=== PATIENT | female | born 1955 | race Caucasian/White ===

== ENCOUNTER 2021-05-28 05:19 | Day surgery (SDC) | payer OTHER, MEDICAID ==
[~2021-05-28] VITALS: Ht 154.9 cm; Wt 57.7 kg
[2021-05-28] MEDS ORDERED: TETRACAINE HCL/PF 0.5% 4 ML OPHTHALMIC SOLUTION OD ONE (05:20)
[2021-05-28] MEDS ORDERED: LIDOCAINE/PF 1% 2 ML VIAL CAUDAL ONE (05:20)
[2021-05-28] MEDS ORDERED: NEOMYCIN/POLYMYXIN B/DEXAMETH 3.5 GM OPHTHALMIC OINTMENT OD ONE (05:20)
[2021-05-28] MEDS ORDERED: DEXAMETHASONE SOD PHOS 4 MG/ML 5 ML VIAL IVP ONE (05:20)
[2021-05-28] MEDS ORDERED: POVIDONE-IODINE 10% 15 ML SOLUTION UD TP ONE (05:20)
[2021-05-28] MEDS ORDERED: HYALURONATE SOD 8.5MG/0.85ML 10 MG/ML SYRINGE IO ONE (05:20)
[2021-05-28] MEDS ORDERED: HYALURONIDASE, HUMAN RECOMB. 150 UNITS/ML ID ONE (05:20)
[2021-05-28] MEDS ORDERED: BUPIVACAINE HCL/PF 0.75% 10 ML VIAL CAUDAL ONE (05:20)
[2021-05-28] MEDS ORDERED: RINGERS SOLUTION,LACTATED 500 ML IV ONE ×2 (05:45→05:58)
[2021-05-28 05:54] LABS: COVID AG,FIA SOURCE NASAL SWAB
[2021-05-28] MEDS ORDERED: MOXIFLOXACIN HCL 0.5% 3 ML OPHTHALMIC SOLUTION ONE (05:58)
[2021-05-28] MEDS ORDERED: PHENYLEPHRINE HCL 2.5% 2 ML OPHTHALMIC SOLUTION ONE (05:58)
[2021-05-28] MEDS ORDERED: DEXAMETHASONE 0.1% 5 ML OPHTHALMIC SOLUTION OS ONE (06:00)
[2021-05-28] MEDS: PHENYLEPHRINE HCL 2.5% 2 ML OPHTHALMIC SOLUTION OS SCH ×3 (06:05→06:15)
[2021-05-28] MEDS: MOXIFLOXACIN HCL 0.5% 3 ML OPHTHALMIC SOLUTION OS SCH ×3 (06:06→06:15)
[2021-05-28] MEDS ORDERED: LIDOCAINE/PF 1% 2 ML VIAL ONE ×3 (06:06→06:14)
[2021-05-28] MEDS ORDERED: BUPIVACAINE HCL/DEX-WATER/PF 0.75% 2 ML AMP ITH ONE (06:08)
[2021-05-28] MEDS ORDERED: NEOMYCIN/POLYMYXIN B/DEXAMETH 3.5 GM OPHTHALMIC OINTMENT ONE (06:08)
[2021-05-28] MEDS ORDERED: HYALURONIDASE, HUMAN RECOMB. 150 UNITS/ML ONE (06:09)
[2021-05-28] MEDS ORDERED: TETRACAINE HCL/PF 0.5% 4 ML OPHTHALMIC SOLUTION ONE (06:11)
[2021-05-28] MEDS ORDERED: BUPIVACAINE HCL/PF 0.75% 10 ML VIAL ONE (06:15)
[2021-05-28] MEDS ORDERED: SODIUM CHLORIDE 0.9% 10 ML ONE (06:15)
[2021-05-28] MEDS ORDERED: POVIDONE-IODINE 10% 15 ML SOLUTION UD ONE (06:16)
[2021-05-28 06:46] LABS: GLUCOMETER DEV NAME(LOC) SDS.; GLUCOSE,POINT OF CARE 114 MG/DL (70-110)
[2021-05-28] MEDS ORDERED: PROPOFOL 1% 20 ML VIAL IVP ONE (12:00)
[2021-05-28] MEDS ORDERED: DiphenhydrAMINE HCL 50 MG/ML VIAL IVP ONE (12:00)
[2021-05-28] MEDS ORDERED: LIDOCAINE/PF 2% 5 ML SYRINGE IVP ONE (12:00)
[2021-05-28] MEDS ORDERED: FentaNYL CITRATE PF 100 MCG/2 ML VIAL IVP ONE (12:00)
[2021-05-28] MEDS ORDERED: MIDAZOLAM HCL 2 MG/2 ML VIAL IVP ONE (12:00)
== END 2021-05-28 10:00 | disposition home or self-care (01) ==
LOC: SURGERY 05:19
PROVIDERS: ATTEND Ophthalmology
DX: T85.898A Other specified complication of other internal prosthetic devices, implants and grafts, initial encounter (principal); H40.1131 Primary open-angle glaucoma, bilateral, mild stage; E11.39 Type 2 diabetes mellitus with other diabetic ophthalmic complication; I10 Essential (primary) hypertension; E11.35 Type 2 diabetes mellitus with proliferative diabetic retinopathy; H40.1123 Primary open-angle glaucoma, left eye, severe stage; Z79.899 Other long term (current) drug therapy; Y83.8 Other surgical procedures as the cause of abnormal reaction of the patient, or of later complication, without mention of misadventure at the time of the procedure
CPT/HCPCS: 66185; C1783; 82962; 93005; J0690; J1100; J1200; J2250; J2704; J3010; J3473; J3490; J7120